=== PATIENT | female | born 1945 | race Caucasian/White ===

== ENCOUNTER → 2016-11-30 | Outpatient (CLI) | payer OTHER ==
[~2016-11-30] MED LIST: ACETAMINOPHEN PO; ACETAMINOPHEN500 M5 PO; ADVAIR INH; ALBUTEROL17 GM NEB; AMIODARONE PO; ASPIRIN EC81 M1 PO; ASPIRIN PO; CARDIZEM CD PO; CARTIA XT PO; COMBIVENT INH14.7 G1 IH; DESYREL50 M1 PO; DIAZEPAM PO; DIAZEPAM5 MG/M2 PO; DURAGESIC TOP; FISH OIL; FISH OIL 1,01 CAP.EC PO; FUROSEMIDE40 MG PO; GLIPIZIDE10 MG/BOTT PO; GLUCOPHAGE500 M1 PO; GLUCOTROL PO; HYDROCODON-ACE1 EAC5 PO; HYOSCYAMINE0.375 M1 PO; IRON SUPPLEMENT; LANOXIN PO; LANSOPRAZOLE30 MG PO; LINZESS145 MCG PO; LIPITOR20 MG DOB; LISINOPRIL PO; LOPRESSOR PO; LORTAB 10-5001 EACH PO; METFORMIN HCL500 M1 PO; METFORMIN PO; METOPROLOL SUCC50 MG PO; MULTI VITAMIN1 EACH PO; OMEGA 3-6-9 11200 MG PO; PLAVIX PO; PREDNISONE PO; PROTONIX PO; RESTORIL15 MG PO; SERTRALINE HCL50 M1 PO; SIMVASTATIN40 MG PO; TEMAZEPAM30 MG PO; TOPROL XL PO; TRICOR PO; TRIGLIDE50 MG PO; VITAMIN B PO; ZESTRIL10 M2 PO; ZITHROMAX PO; ZOCOR PO; ZOLOFT PO; ZOLOFT100 MG PO; ZONEGRAN100 MG PO; [UNRECOGNIZED DRUG - OTHER] PO
--- NOTE | ~2016-11-30 | CT57 ---
[facility] A Service of [facility] RADIOLOGY TEXT RESULTS PATIENT: GISELLA WALDEN LOCATION: [facility] : 44 UNIT #: [id number] AGE: [address]: Teo Blackman MD SEX: F ORDER DR: [id number] [facility] [address] [place], [place] [address] [id number] O MR#: [id number] Acc #: [id number] NAME: GISELLA WALDEN. : 1945 SEX: F STUDY DATE/TIME: 11/30/2016 14:43 UNIT: [facility] ROOM: STUDY DESCRIPTION: CT Chest Wo Cont Attending Physician: Teo Blackman M.D. Ordering Physician: Teo Blackman M.D. Primary Care Physician: Trista Prabhakar M.D. MEDICAL IMAGING REPORT This report is preliminary unless electronic signature is present EXAM CT of the chest without contrast. HISTORY 71-year-old female; follow-up pulmonary nodule. 60 years of tobacco use. TECHNIQUE CT chest performed without contrast. Coronal and sagittal reformatted images obtained. This CT exam was performed with one or more of the following radiation dose reduction techniques: automatic exposure control, adjustment of mA and/or kV according to patient size, and iterative reconstruction. COMPARISON STUDIES 07/06/2016 FINDINGS The previously noted 6-mm ground glass nodule in the right upper lobe is less well apparent and may have resolved. There is a focal area of bronchiolectasia in this region. No new or suspicious nodule. No lymphadenopathy or pleural effusion. Coronary artery calcification. Limited imaging of the upper abdomen demonstrates cholecystectomy. Stable left adrenal nodule, likely an adenoma. The bone windows demonstrate degenerative changes, thoracic spine. IMPRESSION 1. Previously noted 5-mm ground glass nodule in the right upper lobe is no longer present. 2. No new or suspicious nodule. [facility] A Service [facility] RADIOLOGY TEXT RESULTS PATIENT: GISELLA WALDEN LOCATION: [facility] : 44 UNIT #: [id number] AGE: [address]: Teo Blackman MD SEX: F ORDER DR: Dictated by... Evan Garcia M.D. THIS IS AN ELECTRONICALLY VERIFIED REPORT Evan Garcia M.D. at 12/02/2016 8:37 AM MACARIO/jessica TD: 12/01/2016 14:10 JOB #: [id number] MEDICAL IMAGING REPORT Page 1 of 1 COPY
== END | disposition home or self-care (01) ==
LOC: CCAT 13:53
DX: R91.1 Solitary pulmonary nodule (principal)
CPT/HCPCS: 71250

== ENCOUNTER → 2017-03-11 | Outpatient (CLI) | payer OTHER ==
--- NOTE | ~2017-03-11 | CT17 ---
[facility] A Service of [facility] RADIOLOGY TEXT RESULTS PATIENT: GISELLA WALDEN LOCATION: [facility] : 44 UNIT #: [id number] AGE: [address]: Jose Boggs II, MD SEX: F ORDER DR: [id number] [facility] [address] [place], [place] [address] [id number] O MR#: [id number] Acc #: [id number] NAME: GISELLA WALDEN : 1945 SEX: F STUDY DATE/TIME: 03/11/2017 10:52 UNIT: [facility] ROOM: STUDY DESCRIPTION: CT Angio Head Attending Physician: Jose Boggs II., M.D. Referring Physician: Jose Boggs II., M.D. Ordering Physician: Jose Boggs II., M.D. Primary Care Physician: Trista Prabhakar M.D. MEDICAL IMAGING REPORT This report is preliminary unless electronic signature is present EXAM CT scan of head and neck with contrast with carotid CT angiography. HISTORY Generalized headaches, neck stiffness, staggering gait and syncopal episodes over the past 5-6 years. TECHNIQUE Thin section imaging was obtained from the mid mediastinum to the top of head with contrast. 100 mL of Isovue was used. CT angiography was performed with thick sliding MIPs, curved planar reformats and 3-D volumetric imaging with surface shaded and volume shaded display. COMPARISON Comparison made to previous examination from 12/24/2014. This CT exam was performed with one or more of the following radiation dose reduction techniques: automatic exposure control, adjustment of mA and/or kV according to patient size, and iterative reconstruction. FINDINGS Extravascular structures are remarkable for left parotid mass that has grown slightly since the previous CT in 2014. It now measures 2.2 x 2.6 cm compared with 1.4 x 2.1 cm on the previous exam. It most likely represents a benign lesion such as a pleomorphic adenoma or Warthin's tumor. Since it has grown since the previous examination, consider cytologic evaluation with an ultrasound-guided fine needle aspiration. Extravascular structures are otherwise unremarkable. The CT angiographic study shows moderate plaque at the great vessel origins. There is calcified plaque narrowing the left subclavian origin at least 60% to 70%. This appearance is similar to the previous scan. The origin of the left common carotid artery is narrowed approximately 50% [facility] A Service of [facility] RADIOLOGY TEXT RESULTS PATIENT: GISELLA WALDEN LOCATION: [facility] : 44 UNIT #: [id number] AGE: [address]: Jose Boggs II, MD SEX: F ORDER DR: from plaque. In the posterior circulation, both vertebral arteries are widely patent. The right is more dominant than the left. The basilar artery is widely patent. In the carotid circulation, there is plaque at both carotid bifurcations. No significant stenosis by NASCET criteria is noted. The distal carotids up through the siphons show nonocclusive calcified plaque. In the intracranial circulation there is no evidence of aneurysm vascular malformation or major branch vessel occlusion. No new lesions are seen compared to the previous examination. IMPRESSION 1. Mild plaque at both bifurcations with no significant stenosis by NASCET criteria. 2. 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 3. 50% left common carotid artery origin stenosis. 4. No significant intracranial occlusive disease or aneurysm. 5. There is a solid mass in the left parotid gland that has enlarged since the previous study in 2014. I favor a benign etiology such as pleomorphic adenoma or Warthin's tumor. However, since it has enlarged, consider fine-needle aspiration for cytologic analysis. This could be performed under ultrasound guidance without difficulty. Dictated by... Julio Mac M.D. THIS IS AN ELECTRONICALLY VERIFIED REPORT Julio Mac M.D. at 03/16/2017 4:52 PM ANNEMARIE/gordon TD: 03/11/2017 17:59 JOB #: [id number] MEDICAL IMAGING REPORT Page 1 of 1 COPY
--- NOTE | ~2017-03-11 | CT23 ---
[facility] A Service of [facility] RADIOLOGY TEXT RESULTS PATIENT: GISELLA WALDEN LOCATION: [facility] : 44 UNIT #: [id number] AGE: [address]: Jose Boggs II, MD SEX: F ORDER DR: [id number] [facility] [address] [place], [place] [address] [id number] O MR#: [id number] Acc #: [id number] NAME: GISELLA WALDEN : 1945 SEX: F STUDY DATE/TIME: 03/11/2017 10:52 UNIT: [facility] ROOM: STUDY DESCRIPTION: CT Angio Neck Attending Physician: Jose Boggs II., M.D. Referring Physician: Jose Boggs II., M.D. Ordering Physician: Jose Boggs II., M.D. Primary Care Physician: Trista Prabhakar M.D. MEDICAL IMAGING REPORT This report is preliminary unless electronic signature is present EXAM CT scan of neck with contrast with carotid CT angiography. HISTORY Generalized headaches, neck stiffness, staggering gait and syncopal episodes over the past 5-6 years. TECHNIQUE Thin section imaging was obtained from the mid mediastinum to the top of head with contrast. 100 mL of Isovue was used. CT angiography was performed with thick sliding MIPs, curved planar reformats and 3-D volumetric imaging with surface shaded and volume shaded display. This CT exam was performed with one or more of the following radiation dose reduction techniques: automatic exposure control, adjustment of mA and/or kV according to patient size, and iterative reconstruction. COMPARISON Comparison made to previous examination from 12/24/2014. FINDINGS Please see CTA head/neck performed 03/11/2017 for results. Dictated by... Julio Mac M.D. THIS IS AN ELECTRONICALLY VERIFIED REPORT Julio Mac M.D. at 03/16/2017 4:52 PM ANNEMARIE/gordon TD: 03/11/2017 18:06 [facility] A Service of [facility] RADIOLOGY TEXT RESULTS PATIENT: GISELLA WALDEN [facility] #: [id number] : 43 UNIT #: [id number] AGE: [address]: Jose Boggs II, MD SEX: F ORDER DR: JOB #: [id number] MEDICAL IMAGING REPORT Page 1 of 1 COPY
[2017-03-11 17:10] LABS: POC - CREATININE 1.12 mg/dL (0.44-1.03)
== END | disposition home or self-care (01) ==
LOC: CCAT 08:25
PROVIDERS: Psychiatry & Neurology Neurology
DX: R27.0 Ataxia, unspecified (principal); I65.23 Occlusion and stenosis of bilateral carotid arteries; I70.8 Atherosclerosis of other arteries; K11.8 Other diseases of salivary glands
CPT/HCPCS: 70496; 70498; 82565; 96360; 96361; Q9967